=== PATIENT | female | born 1955 | race Caucasian/White ===

== ENCOUNTER 2017-12-11 08:03 | Day surgery (SDC) | payer BC ==
[~2017-12-11] VITALS: Ht 154.9 cm; Wt 92.0 kg
[~2017-12-11 08:03] MED LIST: LANTUS 3 M100 UNITS1 SC; LIPITOR40 MG PO; LISINOPRIL-HCT1 EAC3 PO; MAGNESIUM250 MG PO; NORVASC10 MG PO; TYLENOL ARTHRI650 MG PO; VENLAFAXINE HC150 M1 PO; VITAMIN D32000 UNI1 PO; WELLBUTRIN SR150 MG PO
[2017-12-11 09:18] VITALS: BP 133/83
[2017-12-11 12:43] VITALS: BP 148/72
[2017-12-11 13:50] VITALS: BP 132/63
== END 2017-12-11 14:09 | disposition home or self-care (01) ==
LOC: SDC 08:03
PROVIDERS: Obstetrics & Gynecology
DX: C54.1 Malignant neoplasm of endometrium (principal); N84.0 Polyp of corpus uteri; N95.0 Postmenopausal bleeding; I10 Essential (primary) hypertension; E11.9 Type 2 diabetes mellitus without complications; Z87.891 Personal history of nicotine dependence; Z79.4 Long term (current) use of insulin; Z88.0 Allergy status to penicillin
CPT/HCPCS: 82948; 88305; J0690; J1100; J2250; J2405; J3010

== ENCOUNTER 2018-01-09 21:10 | Inpatient (IN) | payer BC ==
[~2018-01-09] VITALS: Ht 152.4 cm; Wt 95.2 kg
[~2018-01-09 21:10] MED LIST changes: +ATIVAN0.5 MG PO; +BENADRYL ALLERG25 MG PO; +BEVESPI AEROS10.7 GM IH; +LO-DOSE ASPIRIN81 M1 PO; +MOTRIN800 MG PO; +PROAIR HFA8.5 GM IH
[2018-01-10 12:11] VITALS: BP 142/67
[2018-01-10 19:08] VITALS: BP 131/71
[2018-01-10 19:47] LABS: HEMATOCRIT 38.4 % (36.0-46.0); HEMOGLOBIN 12.6 G/DL (11.9-15.5); MCH 29.5 PG (29.0-34.0); MCHC 32.8 G/DL (30.0-36.0); MCV 89.9 FL (83-99); PLATELET COUNT 265 K/uL (156-360); RBC DIS.WIDTH-CV 13.8 % (11.8-14.6); RED BLOOD COUNT 4.27 M/uL (3.80-5.20); WHITE BLOOD COUNT 14.6 K/uL (4.1-10.2)
[2018-01-10 19:55] VITALS: BP 111/72
[2018-01-10 21:15] LABS: CHLORIDE 104 MEQ/L (99-109); CREATININE 1.2 MG/DL (0.6-1.3); GFR ESTIMATE (CALCULATED) 48 mL/min/; GLUCOSE 254 mg/dL (70-99); POTASSIUM 4.2 MEQ/L (3.7-5.4); SODIUM 139 MEQ/L (136-147); UREA NITROGEN (BUN) 11 mg/dL (9-23)
[2018-01-10 22:45] VITALS: BP 132/62
[2018-01-11 03:24] LABS: BASOPHIL (%) 0.4 % (0-1); EOSINOPHIL (%) 0.5 % (0-5); EOSINOPHIL COUNT 0.1 K/uL (0-0.3); HEMATOCRIT 35.8 % (36.0-46.0); HEMOGLOBIN 11.7 G/DL (11.9-15.5); IMMATURE GRANULOCYTE (%) 0.4 % (0.0-0.7); LYMPHOCYTE (%) 13.7 % (15-42); LYMPHOCYTE COUNT 1.5 K/uL (1.0-2.8); MCH 29.8 PG (29.0-34.0); MCHC 32.7 G/DL (30.0-36.0); MCV 91.1 FL (83-99); MONOCYTE (%) 10.2 % (3-12); MONOCYTE COUNT 1.1 K/uL (0-0.8); NEUTROPHIL (%) 74.8 % (45-76); NEUTROPHIL COUNT 8.1 K/uL (1.8-6.4); PLATELET COUNT 219 K/uL (156-360); RBC DIS.WIDTH-CV 13.8 % (11.8-14.6); RBC DIS.WIDTH-SD 46.4 % (39-53); RED BLOOD COUNT 3.93 M/uL (3.80-5.20); WHITE BLOOD COUNT 10.8 K/uL (4.1-10.2)
[2018-01-11 03:38] LABS: CHLORIDE 103 mEq/L (99-109); POTASSIUM 4.6 mEq/L (3.7-5.4); SODIUM 140 mEq/L (136-147)
[2018-01-11 03:40] LABS: GLUCOSE 173 mg/dL (70-99)
[2018-01-11 03:44] LABS: GFR ESTIMATE (CALCULATED) 23 mL/min/
[2018-01-11 03:45] VITALS: BP 110/57
[2018-01-11 03:45] LABS: UREA NITROGEN (BUN) 16 mg/dL (9-23)
[2018-01-11 03:50] LABS: CREATININE 2.3 mg/dL (0.6-1.3)
[2018-01-11 06:58] LABS: HEMATOCRIT 34.5 % (36.0-46.0); MCHC 31.9 G/DL (30.0-36.0); PLATELET COUNT 216 K/uL (156-360); RBC DIS.WIDTH-CV 13.9 % (11.8-14.6); RBC DIS.WIDTH-SD 46.1 % (39-53); RED BLOOD COUNT 3.79 M/uL (3.80-5.20)
[2018-01-11 07:26] LABS: CHLORIDE 103 MEQ/L (99-109); CREATININE 2.1 MG/DL (0.6-1.3); GFR ESTIMATE (CALCULATED) 25 mL/min/; GLUCOSE 199 mg/dL (70-99); POTASSIUM 4.4 MEQ/L (3.7-5.4); SODIUM 139 MEQ/L (136-147); UREA NITROGEN (BUN) 17 mg/dL (9-23)
[2018-01-11 07:35] VITALS: BP 112/56
[2018-01-11 11:03] VITALS: BP 119/60
[2018-01-11 15:10] VITALS: BP 142/65
[2018-01-11 15:55] LABS: HEMATOCRIT 34.9 % (36.0-46.0); HEMOGLOBIN 11.7 G/DL (11.9-15.5); MCH 29.9 PG (29.0-34.0); MCHC 33.5 G/DL (30.0-36.0); MCV 89.3 FL (83-99); PLATELET COUNT 193 K/uL (156-360); RBC DIS.WIDTH-CV 13.9 % (11.8-14.6); RBC DIS.WIDTH-SD 45.1 % (39-53); RED BLOOD COUNT 3.91 M/uL (3.80-5.20); WHITE BLOOD COUNT 11.9 K/uL (4.1-10.2)
[2018-01-11 16:04] LABS: CHLORIDE 102 mEq/L (99-109); POTASSIUM 3.7 mEq/L (3.7-5.4); SODIUM 138 mEq/L (136-147)
[2018-01-11 16:06] LABS: GLUCOSE 189 mg/dL (70-99)
[2018-01-11 16:10] LABS: CREATININE 1.3 mg/dL (0.6-1.3); GFR ESTIMATE (CALCULATED) 44 mL/min/
[2018-01-11 16:11] LABS: UREA NITROGEN (BUN) 14 mg/dL (9-23)
[2018-01-11 20:03] VITALS: BP 145/65
[2018-01-12 00:15] VITALS: BP 137/64
[2018-01-12 03:50] VITALS: BP 142/65
[2018-01-12 06:20] LABS: HEMATOCRIT 35.2 % (36.0-46.0); HEMOGLOBIN 11.6 G/DL (11.9-15.5); MCH 29.6 PG (29.0-34.0); MCV 89.8 FL (83-99); PLATELET COUNT 192 K/uL (156-360); RBC DIS.WIDTH-CV 13.8 % (11.8-14.6); RBC DIS.WIDTH-SD 44.6 % (39-53); RED BLOOD COUNT 3.92 M/uL (3.80-5.20); WHITE BLOOD COUNT 9.9 K/uL (4.1-10.2)
[2018-01-12 06:54] LABS: CHLORIDE 101 MEQ/L (99-109); CREATININE 0.9 MG/DL (0.6-1.3); GFR ESTIMATE (CALCULATED) > 59 mL/min/; GLUCOSE 164 mg/dL (70-99); POTASSIUM 3.4 MEQ/L (3.7-5.4); SODIUM 140 MEQ/L (136-147); UREA NITROGEN (BUN) 8 mg/dL (9-23)
[2018-01-12 07:14] VITALS: BP 138/73
== END 2018-01-12 10:55 | disposition home or self-care (01) | DRG 740 ==
LOC: ENRESERV 21:10 → 2EAST 01-10 11:08 → 2SOUTH 01-10 11:08 → ENRESERV 01-10 16:40 → 2EAST 01-10 18:58
PROVIDERS: Internal Medicine; Nurse Practitioner Acute Care; Obstetrics & Gynecology Gynecologic Oncology
DX: C54.1 Malignant neoplasm of endometrium (principal); N17.9 Acute kidney failure, unspecified; E11.9 Type 2 diabetes mellitus without complications; E86.0 Dehydration; Z68.38 Body mass index [BMI] 38.0-38.9, adult; E66.9 Obesity, unspecified; I25.10 Atherosclerotic heart disease of native coronary artery without angina pectoris; F32.9 Major depressive disorder, single episode, unspecified; E78.5 Hyperlipidemia, unspecified; I10 Essential (primary) hypertension; G47.30 Sleep apnea, unspecified; Z85.42 Personal history of malignant neoplasm of other parts of uterus; Z80.3 Family history of malignant neoplasm of breast; Z80.8 Family history of malignant neoplasm of other organs or systems; Z80.0 Family history of malignant neoplasm of digestive organs
CPT/HCPCS: 36415; 74018; 76770; 80048; 80048 91; 82436; 82570; 82948; 84300; 85025; 85027; 86850; 86900; 86901; 86920; 88302; 88305; 88309; 94799; J0131; J1170; J1580; J1644; J1815; J1885; J1940; J2250; J2405; J2710; J2765; J3010; J7050; J7120; S0030